=== PATIENT | female | born 1955 | race Caucasian/White ===

== ENCOUNTER 2016-12-13 13:24 | Emergency (ER) | payer SELFPAY ==
--- NOTE | 2016-12-13 13:32 | ER Document Report ---
ED Medical Screen (RME) - General Stated Complaint: ABDOMINAL PAIN/BLOOD IN URINE Time seen by provider: 13:30 Mode of Arrival: Ambulatory Information source: Patient Notes: 61-year-old female presents to ED for flank pain on the right for the last week started out mild became much worse starting yesterday. Patient states she's been having nausea and diarrhea but no vomiting. Patient states she has had kidney stones in the past. And she has blood in her urine at the doctor's office. She states it fink when she urinates and she has frequency and urgency with urination. I have greeted and performed a rapid initial assessment of this patient. A comprehensive ED assessment and evaluation of the patient, analysis of test results and completion of medical decision making process will be conducted by an additional ED providers. TRAVEL OUTSIDE OF THE [place] IN LAST 30 DAYS: No - Related Data Allergies/Adverse Reactions: Egg Derived [Egg/Poultry] Allergy (Severe, Verified 01/13/16 07:54) Anaphylaxis Sulfa (Sulfonamide Antibiotics) Allergy (Severe, Verified 01/13/16 07:54) Hives Past Medical History - Past Medical History Cardiac Medical History: Reports: Hx Hypertension, Hx Heart Murmur Pulmonary Medical History: Denies: Hx Tuberculosis Neurological Medical History: Denies: Hx Seizures Renal/ Medical History: Reports: Hx Kidney Stones GI Medical History: Reports: Hx Gastroesophageal Reflux Disease, Hx Hiatal Hernia Psychiatric Medical History: Reports: Hx Depression Past Surgical History: Reports: Hx Abdominal Surgery - to remove scar tissue, Hx Cardiac Catheterization. Denies: Hx Pacemaker - Immunizations Hx Diphtheria, Pertussis, Tetanus Vaccination: Yes Physical Exam - Vital signs Vitals: Pulse Resp BP Pulse Ox 69 17 142/70 H 99 12/13/16 17:28 12/13/16 17:28 12/13/16 17:28 12/13/16 17:28 Course - Vital Signs Vital signs: Temp Pulse Resp BP Pulse Ox 69 17 142/70 H 99 12/13/16 17:28 12/13/16 17:28 12/13/16 17:28 12/13/16 17:28 - Laboratory Result Diagrams: 12/13/16 13:40 12/13/16 13:40 Laboratory results interpreted by me: 12/13/16 12/13/16 13:40 13:45 BUN 23 H Urine Blood SMALL H Urine Urobilinogen 8.0 H Doctor's Discharge - Discharge Clinical Impression: Abdominal pain Condition: Stable Disposition: HOME, SELF-CARE Additional Instructions: Return to the emergency department if symptoms worsen such as increased abdominal pain, fever, loss of consciousness, etc. follow-up with primary care physician as soon as possible. Prescriptions: Ondansetron [Zofran Odt 4 mg Tablet] 1 - 2 tab PO Q4H PRN #15 tab.rapdis PRN Reason: For Nausea/Vomiting Forms: Return to Work Referrals: [facility] [Provider Group] - Follow up as needed
[2016-12-13] MEDS ORDERED: IBUPROFEN 600 MG TABLET PO ONE (13:34)
[2016-12-13] MEDS ORDERED: OXYCODONE-ACETAMINOPHEN 5-325 MG TABLET PO ONE (13:34)
[2016-12-13] MEDS ORDERED: ONDANSETRON 4 MG TAB.RAPDIS PO ONE (13:34)
[2016-12-13 14:05] LABS: APPEARANCE,URINE CLEAR; BILIRUBIN,URINE NEGATIVE (NEGATIVE); GLUCOSE, URINE NEGATIVE (NEGATIVE); KETONES,URINE NEGATIVE (NEGATIVE)
[2016-12-13 14:06] LABS: LEUKOCYTE ESTERASE,URINE NEGATIVE (NEGATIVE); NITRITE,URINE NEGATIVE (NEGATIVE); PROTEIN,URINE NEGATIVE (NEGATIVE)
[2016-12-13 14:15] LABS: ABSOLUTE EOSINOPHILS # (AUTO) 0.1 10^3/uL (0.0-0.6); ABSOLUTE LYMPHOCYTES (AUTO) 2.8 10^3/uL (0.5-4.7); ABSOLUTE MONOCYTES (AUTO) 0.5 10^3/uL (0.1-1.4); ABSOLUTE NEUT (AUTO) 5.3 10^3/uL (1.7-8.2); BASOPHILS % (AUTO) 0.2 % (0-2); EOSINOPHILS % (AUTO) 0.7 % (0-6); HEMATOCRIT 39.7 % (36.0-47.0); HEMOGLOBIN 12.8 g/dL (12.0-15.5); HGB HCT DIFFERENCE -1.3; MEAN CORPUSCULAR HEMOGLOBIN 29.8 pg (27.0-33.4); MEAN CORPUSCULAR HGB CONC 32.2 g/dL (32.0-36.0); MEAN CORPUSCULAR VOLUME 93 fl (80-97); MONOCYTES % (AUTO) 5.6 % (3-13); RED BLOOD COUNT 4.29 10^6/uL (3.72-5.28); RED CELL DISTRIBUTION WIDTH 13.5 % (11.5-14.0); SEGMENTED NEUTROPHILS % (AUTO) 61.5 % (42-78); WHITE BLOOD COUNT 8.6 10^3/uL (4.0-10.5)
[2016-12-13 14:17] LABS: WBC,URINE 0-1 /HPF
[2016-12-13 14:18] LABS: BACTERIA,URINE TRACE /HPF
[2016-12-13] MEDS ORDERED: NORMAL SALINE 1000 ML 1,000 ML IV ONE (14:21)
--- NOTE | 2016-12-13 14:21 | ER Document Report ---
ED General - General Chief Complaint: Abdominal Pain Stated Complaint: ABDOMINAL PAIN/BLOOD IN URINE Time seen by provider: 14:18 Mode of Arrival: Ambulatory Notes: This is a 61-year-old female that presents today with a one-week history of abdominal pain. She states that one week ago she had right upper quadrant pain 2 out of 10 intermittently. She states that it would alternate between sharp and dull. However 3 days ago the abdominal pain became constant and she also complains of left and right flank pain. It is now 10 out of 10 pain with no radiation. She is also complaining of dysuria denies hematuria. Denies fever chills and vomiting. Admits to nausea. She does have a history of kidney stones 9 years ago on the right side. TRAVEL OUTSIDE OF THE [place] IN LAST 30 DAYS: No - Related Data Allergies/Adverse Reactions: Egg Derived [Egg/Poultry] Allergy (Severe, Verified 01/13/16 07:54) Anaphylaxis Sulfa (Sulfonamide Antibiotics) Allergy (Severe, Verified 01/13/16 07:54) Hives Past Medical History - General Information source: Patient - Social History Smoking Status: Current Every Day Smoker Chew tobacco use (# tins/day): No Frequency of alcohol use: None Drug Abuse: None Family History: Reviewed & Not Pertinent Patient has suicidal ideation: No Patient has homicidal ideation: No - Past Medical History Cardiac Medical History: Reports: Hx Hypertension, Hx Heart Murmur Pulmonary Medical History: Denies: Hx Tuberculosis Neurological Medical History: Denies: Hx Seizures Renal/ Medical History: Reports: Hx Kidney Stones. Denies: Hx Peritoneal Dialysis GI Medical History: Reports: Hx Gastroesophageal Reflux Disease, Hx Hiatal Hernia Psychiatric Medical History: Reports: Hx Depression Past Surgical History: Reports: Hx Abdominal Surgery - to remove scar tissue, Hx Cardiac Catheterization. Denies: Hx Pacemaker - Immunizations Hx Diphtheria, Pertussis, Tetanus Vaccination: Yes Hx Pneumococcal Vaccination: 08/25/11 Review of Systems - Review of Systems Constitutional: denies: Chills, Fever EENT: No symptoms reported Cardiovascular: No symptoms reported Respiratory: No symptoms reported Gastrointestinal: See HPI Genitourinary: Burning, Dysuria Female Genitourinary: No symptoms reported Musculoskeletal: No symptoms reported Skin: No symptoms reported Hematologic/Lymphatic: No symptoms reported Neurological/Psychological: No symptoms reported Physical Exam - Vital signs Vitals: Pulse Resp BP Pulse Ox 69 17 142/70 H 99 12/13/16 17:28 12/13/16 17:28 12/13/16 17:28 12/13/16 17:28 - General General appearance: Appears well In distress: None - HEENT Head: Normocephalic, Atraumatic Eyes: Normal Conjunctiva: Normal - Respiratory Respiratory status: No respiratory distress Breath sounds: Normal. No: Rales, Rhonchi, Stridor, Wheezing - Cardiovascular Rhythm: Regular Heart sounds: Normal auscultation - Abdominal Inspection: Normal Bowel sounds: Normal Tenderness: Tender - Tender to right upper quadrant epigastric and left lower quadrant to moderate palpation., Anand's sign - Back Back: CVA tenderness - Right CVA tenderness - Extremities General upper extremity: Normal inspection, Nontender, Normal strength, Normal temperature General lower extremity: Normal inspection, Nontender, Normal strength, Normal temperature - Neurological Cognition: Normal. No: Confused - Psychological Associated symptoms: Normal affect, Normal mood - Skin Skin Temperature: Warm Skin Moisture: Dry Skin Color: Normal Course - Re-evaluation Re-evalutation: 12/13/16 17:04 Patient refuses rectal nausea medicine and prescription. Radiograph images was shared with the patient. She was given multiple opportunities to ask questions. She was advised to follow-up with primary care physician. - Vital Signs Vital signs: Temp Pulse Resp BP Pulse Ox 69 17 142/70 H 99 12/13/16 17:28 12/13/16 17:28 12/13/16 17:28 12/13/16 17:28 - Laboratory Result Diagrams: 12/13/16 13:40 12/13/16 13:40 Laboratory results interpreted by me: 12/13/16 12/13/16 13:40 13:45 BUN 23 H Urine Blood SMALL H Urine Urobilinogen 8.0 H Discharge - Discharge Clinical Impression: Abdominal pain Qualifiers: Abdominal location: generalized Qualified Code(s): R10.84 - Generalized abdominal pain Condition: Stable Disposition: HOME, SELF-CARE Additional Instructions: Return to the emergency department if symptoms worsen such as increased abdominal pain, fever, loss of consciousness, etc. follow-up with primary care physician as soon as possible. Prescriptions: Ondansetron [Zofran Odt 4 mg Tablet] 1 - 2 tab PO Q4H PRN #15 tab.rapdis PRN Reason: For Nausea/Vomiting Forms: Return to Work Referrals: [facility] [Provider Group] - Follow up as needed
[2016-12-13] MEDS ORDERED: ONDANSETRON HCL INJ/PF 4 MG/2 ML SDV IV ONE (14:22)
[2016-12-13 14:41] LABS: ALANINE AMINOTRANSFERASE 24 U/L (9-52); ALBUMIN 4.6 g/dL (3.5-5.0); ALKALINE PHOSPHATASE 93 U/L (38-126); ANION GAP 11 (5-19); ASPARTATE AMINO TRANSFERASE 23 U/L (14-36); BILIRUBIN,TOTAL 0.7 mg/dL (0.2-1.3); BLOOD UREA NITROGEN 23 mg/dL (7-20); CALCIUM 9.7 mg/dL (8.4-10.2); CARBON DIOXIDE 28 mmol/L (22-30); CHLORIDE 106 mmol/L (98-107); CREATININE RESULT 0.93 mg/dL (0.52-1.25); GLUCOSE 95 mg/dL (75-110); POTASSIUM 4.3 mmol/L (3.6-5.0); SODIUM 144.8 mmol/L (137-145); TOTAL PROTEIN 7.8 g/dL (6.3-8.2)
[2016-12-13] MEDS ORDERED: MORPHINE SULFATE 10 MG/ML INJ IV ONE (16:25)
[2016-12-13] MEDS ORDERED: HYDROCODONE/ACETAMINOPHEN 5-325 MG 6 TAB/DSPK PO PRN (17:05)
[2016-12-13 17:33] VITALS: BP 142/70
== END 2016-12-13 17:30 | disposition home or self-care (01) ==
LOC: ER 13:24
DX: R10.84 Generalized abdominal pain (principal); R10.11 Right upper quadrant pain; R30.0 Dysuria; F17.200 Nicotine dependence, unspecified, uncomplicated; I10 Essential (primary) hypertension; K21.9 Gastro-esophageal reflux disease without esophagitis; Z88.2 Allergy status to sulfonamides; Z91.012 Allergy to eggs; Z87.442 Personal history of urinary calculi
CPT/HCPCS: 99284; 96361; 96374; 96375; 36415; 83690; 85025; 80053; 81001; 74176; J2270; J2405; J7030

== ENCOUNTER 2017-05-13 16:49 | Emergency (ER) | payer SELFPAY ==
[2017-05-13 16:59] VITALS: BP 148/69
== END 2017-05-13 20:00 | disposition left against medical advice (07) ==
LOC: ER 16:49
DX: Z53.9 Procedure and treatment not carried out, unspecified reason (principal); R10.9 Unspecified abdominal pain

== ENCOUNTER 2017-05-30 15:59 | Emergency (ER) | payer SELFPAY ==
[2017-05-30] MEDS ORDERED: PROMETHAZINE HCL 25 MG TABLET PO ONE (16:56)
[2017-05-30] MEDS ORDERED: OXYCODONE-ACETAMINOPHEN 5-325 MG TABLET PO ONE (16:56)
[2017-05-30] MEDS ORDERED: ONDANSETRON 4 MG TAB.RAPDIS PO ONE (16:56)
--- NOTE | 2017-05-30 16:58 | ER Document Report ---
ED Medical Screen (RME) - General Chief Complaint: Flank Pain Stated Complaint: BACK/ABDOMINAL/BILATERAL LEG PAIN Time Seen by Provider: 05/30/17 16:56 Notes: Patient says that she has had discomfort in her lower back as well as her abdomen for the past couple of days, but is worsened to severe pain now. She has been nauseated but not vomiting. She said that it feels like she needs to urinate, but then when she goes it fink. She has not noticed any blood in her urine, however. She also notices swelling of both of her lower legs. She was at work today and they advised her to come to be checked out. 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 Has not had any fever. No history of kidney stones. Patient's only abdominal surgery was for scar tissue. She has mitral valve prolapse. TRAVEL OUTSIDE OF THE [place] IN LAST 30 DAYS: No - Related Data Allergies/Adverse Reactions: Egg Derived [Egg/Poultry] Allergy (Severe, Verified 05/30/17 16:25) Anaphylaxis Sulfa (Sulfonamide Antibiotics) Allergy (Severe, Verified 05/30/17 16:25) Hives Past Medical History - Social History Chew tobacco use (# tins/day): No Frequency of alcohol use: None Drug Abuse: None - Past Medical History Cardiac Medical History: Reports: Hx Hypertension, Hx Heart Murmur Pulmonary Medical History: Denies: Hx Tuberculosis Neurological Medical History: Denies: Hx Seizures Renal/ Medical History: Reports: Hx Kidney Stones. Denies: Hx Peritoneal Dialysis GI Medical History: Reports: Hx Gastroesophageal Reflux Disease, Hx Hiatal Hernia Psychiatric Medical History: Reports: Hx Depression Past Surgical History: Reports: Hx Abdominal Surgery - to remove scar tissue, Hx Cardiac Catheterization. Denies: Hx Pacemaker - Immunizations Hx Diphtheria, Pertussis, Tetanus Vaccination: Yes Physical Exam - Vital signs Vitals: Temp Pulse Resp BP Pulse Ox 98.4 F 69 20 145/71 H 98 05/30/17 16:27 05/30/17 16:27 05/30/17 16:27 05/30/17 16:27 05/30/17 16:27 Course - Vital Signs Vital signs: Temp Pulse Resp BP Pulse Ox 98.4 F 69 16 145/71 H 98 05/30/17 16:27 05/30/17 16:27 05/30/17 16:45 05/30/17 16:27 05/30/17 16:27
[2017-05-30 17:22] LABS: ABSOLUTE EOSINOPHILS # (AUTO) 0.1 10^3/uL (0.0-0.6); ABSOLUTE LYMPHOCYTES (AUTO) 2.4 10^3/uL (0.5-4.7); ABSOLUTE MONOCYTES (AUTO) 0.5 10^3/uL (0.1-1.4); ABSOLUTE NEUT (AUTO) 6.1 10^3/uL (1.7-8.2); BASOPHILS % (AUTO) 0.3 % (0-2); EOSINOPHILS % (AUTO) 0.7 % (0-6); HEMATOCRIT 38.1 % (36.0-47.0); HEMOGLOBIN 12.4 g/dL (12.0-15.5); HGB HCT DIFFERENCE -0.9; LYMPHOCYTES % (AUTO) 26.8 % (13-45); MEAN CORPUSCULAR HEMOGLOBIN 28.6 pg (27.0-33.4); MEAN CORPUSCULAR HGB CONC 32.7 g/dL (32.0-36.0); MEAN CORPUSCULAR VOLUME 88 fl (80-97); MONOCYTES % (AUTO) 5.5 % (3-13); RED BLOOD COUNT 4.35 10^6/uL (3.72-5.28); RED CELL DISTRIBUTION WIDTH 14.5 % (11.5-14.0); SEGMENTED NEUTROPHILS % (AUTO) 66.7 % (42-78); WHITE BLOOD COUNT 9.1 10^3/uL (4.0-10.5)
[2017-05-30 17:41] LABS: APPEARANCE,URINE CLEAR; BILIRUBIN,URINE NEGATIVE (NEGATIVE); GLUCOSE, URINE NEGATIVE (NEGATIVE); KETONES,URINE NEGATIVE (NEGATIVE); LEUKOCYTE ESTERASE,URINE TRACE (NEGATIVE); NITRITE,URINE NEGATIVE (NEGATIVE); PROTEIN,URINE NEGATIVE (NEGATIVE); URINE SPECIFIC GRAVITY 1.013; UROBILINOGEN,URINE NEGATIVE mg/dL (<2.0)
[2017-05-30 17:50] LABS: ALANINE AMINOTRANSFERASE 27 U/L (9-52); ALBUMIN 4.3 g/dL (3.5-5.0); ALKALINE PHOSPHATASE 100 U/L (38-126); ANION GAP 10 (5-19); ASPARTATE AMINO TRANSFERASE 20 U/L (14-36); BILIRUBIN,DIRECT 0.3 mg/dL (0.0-0.4); BILIRUBIN,TOTAL 0.5 mg/dL (0.2-1.3); BLOOD UREA NITROGEN 17 mg/dL (7-20); CALCIUM 9.1 mg/dL (8.4-10.2); CARBON DIOXIDE 26 mmol/L (22-30); CHLORIDE 104 mmol/L (98-107); CREATININE RESULT 0.87 mg/dL (0.52-1.25); GLUCOSE 100 mg/dL (75-110); LIPASE 75.6 U/L (23-300); SODIUM 140.4 mmol/L (137-145); TOTAL PROTEIN 7.7 g/dL (6.3-8.2)
[2017-05-30] MEDS ORDERED: KETOROLAC TROMETHAMINE INJ/PF 30 MG/1 ML SDV IV ONE (19:28)
--- NOTE | 2017-05-30 21:14 | ER Document Report ---
ED GI/ <DANYELLECATRACHITO MaganaDELANEY - Last Filed: 05/31/17 00:48> - General Mode of Arrival: Ambulatory Information source: Patient TRAVEL OUTSIDE OF THE [place] IN LAST 30 DAYS: No - HPI Onset: Other - Refer to HPI notes <ANTONYDORINA - Last Filed: 05/31/17 01:24> - General Chief Complaint: Flank Pain Stated Complaint: BACK/ABDOMINAL/BILATERAL LEG PAIN Time Seen by Provider: 05/30/17 16:56 Notes: Patient is a 61-year old female presenting to the emergency department for low back/flank pain, abdominal distension, and lower extremity edema. Patient states that she first had some mild discomfort in her lower back bilaterally for about 2 weeks; patient had worsened pain specifically to the right flank that was onset today. Patient also has some right sided abdominal pain, burning with urination, and abdominal distension. Patient has had increased distension over the past 2 weeks and has gone from pant size 8 to size 13 due to the distension. Patient complains of some pain in her left leg as well. Patient also complains of nausea but denies vomiting. (DORINA HARDY) - Related Data Allergies/Adverse Reactions: Egg Derived [Egg/Poultry] Allergy (Severe, Verified 05/30/17 16:25) Anaphylaxis Sulfa (Sulfonamide Antibiotics) Allergy (Severe, Verified 05/30/17 16:25) Hives Past Medical History - General Information source: Patient - Social History Smoking Status: Current Some Day Smoker Chew tobacco use (# tins/day): No Frequency of alcohol use: None Drug Abuse: None Family History: None Patient has suicidal ideation: No Patient has homicidal ideation: No - Past Medical History Cardiac Medical History: Reports: Hx Hypertension, Hx Heart Murmur Renal/ Medical History: Reports: Hx Kidney Stones GI Medical History: Reports: Hx Gastroesophageal Reflux Disease, Hx Hiatal Hernia Psychiatric Medical History: Reports: Hx Depression Past Surgical History: Reports: Hx Abdominal Surgery - to remove scar tissue, Hx Cardiac Catheterization - Immunizations Hx Diphtheria, Pertussis, Tetanus Vaccination: Yes Hx Pneumococcal Vaccination: 08/25/11 <DORINA HARDY - Last Filed: 05/31/17 01:24> Review of Systems - Review of Systems Constitutional: No symptoms reported EENT: No symptoms reported Cardiovascular: No symptoms reported Respiratory: No symptoms reported Gastrointestinal: See HPI, Abdomen distended, Abdominal pain, Nausea. denies: Vomiting Genitourinary: See HPI, Burning, Dysuria, Flank pain Female Genitourinary: No symptoms reported Musculoskeletal: See HPI Skin: No symptoms reported Hematologic/Lymphatic: No symptoms reported Neurological/Psychological: No symptoms reported -: Yes All other systems reviewed and negative <DORINA HARDY - Last Filed: 05/31/17 01:24> Physical Exam <DELANEY BASSETT - Last Filed: 05/31/17 00:48> - Vital signs Interpretation: Normal <DORINA HARDY - Last Filed: 05/31/17 01:24> - Vital signs Vitals: Temp Pulse Resp BP Pulse Ox 98.4 F 69 20 145/71 H 98 05/30/17 16:27 05/30/17 16:27 05/30/17 16:27 05/30/17 16:27 05/30/17 16:27 - Notes Notes: GENERAL: Alert, interacts well. No acute distress. HEAD: Normocephalic, atraumatic. EYES: Pupils equal, round, and reactive to light. Extraocular movements intact. ENT: Oral mucosa moist, tongue midline. NECK: Full range of motion. Supple. Trachea midline. LUNGS: Clear to auscultation bilaterally, no wheezes, rales, or rhonchi. No respiratory distress. HEART: Regular rate and rhythm. No murmurs, gallops, or rubs. ABDOMEN: Soft, mild right-lateral abdominal pain. Distended abdomen. Bowel sounds present in all 4 quadrants. EXTREMITIES: Moves all 4 extremities spontaneously. Normal dorsalis pedis pulses bilaterally. Trace pitting edema over the pretibial bilaterally. NEUROLOGICAL: Alert and oriented x3. Normal speech. PSYCH: Normal affect, normal mood. SKIN: Warm, dry, normal turgor. No rashes or lesions noted. (LORETODORINA VELÁZQUEZ) Course - Laboratory Result Diagrams: 05/30/17 17:10 05/30/17 17:10 <DELANEY BASSETT - Last Filed: 05/31/17 00:48> - Laboratory Result Diagrams: 05/30/17 17:10 05/30/17 17:10 <ANTONYDORINA - Last Filed: 05/31/17 01:24> - Re-evaluation Re-evalutation: 05/31/17 00:48 05/31/17 00:46 Old records, it seems the patient is been here several times over the last 6 years with similar complaints of abdominal swelling bloating and pain, each time with a negative workup. (DELANEY BASSETT) - Vital Signs Vital signs: Temp Pulse Resp BP Pulse Ox 97.6 F 61 16 122/62 98 05/30/17 21:19 05/30/17 21:19 05/30/17 21:19 05/30/17 21:19 05/30/17 21:19 - Laboratory Laboratory results interpreted by me: 05/30/17 05/30/17 05/30/17 17:00 17:10 22:02 RDW 14.5 H ESR 31 H Urine Blood MODERATE H Ur Leukocyte Esterase TRACE H Discharge <DELANEY BASSETT - Last Filed: 05/31/17 00:48> <DORINA HRADY - Last Filed: 05/31/17 01:24> - Discharge Clinical Impression: Abdominal pain Qualifiers: Abdominal location: lower abdomen, unspecified Qualified Code(s): R10.30 - Lower abdominal pain, unspecified Low back pain Qualifiers: Chronicity: unspecified Back pain laterality: unspecified Sciatica presence: without sciatica Qualified Code(s): M54.5 - Low back pain Condition: Stable Disposition: HOME, SELF-CARE Additional Instructions: Abdominal Pain: There are many causes of abdominal pain. Pain can mean a serious problem requiring surgery (such as appendicitis). It can also be an innocent problem that goes away on its own (such as a viral infection). Often, time must pass to determine the cause of pain. The physician does not feel that hospitalization is necessary, at present. Things may change within the next 24 hours. Call the doctor or come back for re- examination if any problems occur, such as: (1) Pain that becomes more severe, steady, or becomes concentrated in one specific area. Also, pain that is more severe with movement or coughing. (2) Vomiting that persists or becomes more frequent. (3) Blood in the vomitus, urine, or bowel movements. Blood in the stool may have a tarry or black appearance. (4) Shaking chills or fever greater than 100 degrees F. (5) The abdomen becomes more distended or swollen. (6) Bowel movements cease. (7) Failure to improve as expected. Try taking MiraLAX daily to keep your bowels moving. Drink plenty of fluids. Follow-up with a local medical doctor if not improving. RETURN TO THE EMERGENCY ROOM IF ANY NEW OR WORSENING SYMPTOMS. Forms: Return to Work Scribe Attestation: 05/31/17 00:51 I personally performed the services described in the documentation, reviewed and edited the documentation which was dictated to the scribe in my presence, and it accurately records my words and actions. (DELANEY BASSETT) Scribe Documentation - Scribe Written by Missy:: Missy Steele, 05/30/2017 21:09 acting as scribe for :: Danyelle <DORINA HARDY - Last Filed: 05/31/17 01:24>
--- NOTE | 2017-05-31 00:35 | RADIOLOGY REPORT (SQ) ---
EXAM DESCRIPTION: CT ABD/PELVIS WITH IV ORAL COMPLETED DATE/TIME: 05/31/2017 12:17 am REASON FOR STUDY: abd pain, swelling, pant size 8 to 13 in 2 wks COMPARISON: 12/13/2016 TECHNIQUE: CT scan of the abdomen and pelvis performed using helical scanning technique with dynamic intravenous contrast injection. No oral contrast. Images reviewed with lung, soft tissue, and bone windows. Reconstructed coronal and sagittal MPR images reviewed. Delayed images for evaluation of the urinary system also acquired. All images stored on PACS. All CT scanners at this facility use dose modulation, iterative reconstruction, and/or weight based d osing when appropriate to reduce radiation dose to as low as reasonably achievable (ALARA). [facility]: Dose Right [facility]: CareDose [facility]: Dose Right [facility]: Teradose 4D [facility]: [employer] CONTRAST TYPE AND DOSE: contrast/concentration: Isovue 370.00 mg/ml; Total Contrast Delivered: 72.0 ml; Total Saline Delivered: 66.0 ml RENAL FUNCTION: 0.9 RADIATION DOSE: Up-to-date CT equipment and radiation dose reduction techniques were employed. CTDIv ol: 11.6 mGy. DLP: 1188 mGy-cm.. LIMITATIONS: None. FINDINGS: LOWER CHEST: Small atelectasis or scar bilateral lung bases. 5 cm hiatal hernia. LIVER: Normal size. No masses. No dilated ducts. SPLEEN: Normal size. No focal lesions. PANCREAS: No masses. No significant calcifications. No adjacent inflammation or peripancreatic fluid collections. Pancreatic duct not dilated. GALLBLADDER: No identified stones by CT criteria. No inflammatory changes to suggest cholecystitis. ADRENAL GLANDS: No significant masses or asymmetry. RIGHT KIDNEY AND URETER: No solid masses. No significant calcifications. No hydronephrosis or hyd roureter. LEFT KIDNEY AND URETER: No solid masses. No significant calcifications. No hydronephrosis or hydr oureter. AORTA AND VESSELS: No aneurysm. No dissection. Renal arteries, SMA, celiac without stenosis. RETROPERITONEUM: No retroperitoneal adenopathy, hemorrhage or masses. BOWEL AND PERITONEAL CAVITY: No masses or inflammatory changes. No free fluid or peritoneal masses. APPENDIX: Normal. PELVIS: No mass or free fluid. Normal bladder. ABDOMINAL WALL: No masses. No hernias. BONES: Chronic grade 1 L5 anterolisthesis. Moderate lumbosacral spondylosis. OTHER: No other significant finding. IMPRESSION: No acute findings. Small-moderate chronic hiatal hernia. TECHNICAL DOCUMENTATION: JOB ID: [id number] Quality ID # [id number]: Final reports with documentation of one or more dose reduction techniques (e.g., Au tomated exposure control, adjustment of the mA and/or kV according to patient size, use of iterative reconstruction technique) 2010 [employer]- All Rights Reserved
[2017-05-31] MEDS ORDERED: HYDROCODONE/ACETAMINOPHEN 5-325 MG 6 TAB/DSPK PO PRN (00:45)
[2017-05-31 01:28] VITALS: BP 133/74
== END 2017-05-31 01:27 | disposition home or self-care (01) ==
LOC: ER 15:59
DX: R10.30 Lower abdominal pain, unspecified (principal); M54.5 Low back pain; M54.9 Dorsalgia, unspecified; M79.604 Pain in right leg; M79.605 Pain in left leg; R60.0 Localized edema; R30.9 Painful micturition, unspecified; R14.0 Abdominal distension (gaseous); F17.200 Nicotine dependence, unspecified, uncomplicated
CPT/HCPCS: 99284; 96374; 36415; 83690; 85025; 85652; 80053; 81001; 85379; 74177; S0119; J1885

== ENCOUNTER → 2017-12-28 | Outpatient (CLI) | payer OTHER ==
--- NOTE | 2017-12-28 14:52 | RADIOLOGY REPORT (SQ) ---
EXAM DESCRIPTION: MRI HEAD WITHOUT COMPLETED DATE/TIME: 12/28/2017 12:37 pm REASON FOR STUDY: MIGRAINE G43.909 MIGRAINE, UNSP, NOT INTRACTABLE, WITHOUT STATUS MIGR COMPARISON: Multiple, most recent 01/13/2016 TECHNIQUE: Multiplanar imaging includes non-contrasted T1, T2, FLAIR, and diffusion with ADC map seq uences. Images stored on PACS. LIMITATIONS: None. FINDINGS: ANATOMY: No anomalies. Normal vascular flow voids. Pituitary fossa normal. CSF SPACES: Normal in size and contour. No hemorrhage. CEREBRUM: Sulci and gyri normal in size and contour. Normal white matter signal on FLAIR imaging. No evidence of hemorrhage, mass, or extraaxial fluid collection. POSTERIOR FOSSA: No signal alteration. No hemorrhage. No edema, masses or mass effect. Internal daniele tory canals, cerebello-pontine angles, mastoids normal. DIFFUSION IMAGING: Negative for acute or sub-acute infarction. ORBITS: No masses. Globes normal. PARANASAL SINUSES: No fluid levels. Mucosa normal. OTHER: No other significant finding. IMPRESSION: Normal brain. EVIDENCE OF ACUTE STROKE: NO. TECHNICAL DOCUMENTATION: JOB ID: [id number] [email or web address]- All Rights Reserved
== END ==
LOC: RAD 11:55
PROVIDERS: ATTEND Physician Assistant Medical
DX: G43.909 Migraine, unspecified, not intractable, without status migrainosus (principal)
CPT/HCPCS: 70551

== ENCOUNTER → 2018-09-04 | Outpatient (CLI) | payer OTHER | LOC: OD 11:02 | PROVIDERS: ATTEND Family Medicine | DX: R68.89 Other general symptoms and signs (principal) | CPT/HCPCS: 36415; 84443 ==

== ENCOUNTER 2018-09-05 10:45 | Emergency (ER) | payer OTHER ==
[2018-09-05] MEDS ORDERED: DIPH/PERTUSS(ACELL)/TETANUS VAC/PF 0.5 ML SYR (>=10YO) IM ONE (12:10)
--- NOTE | 2018-09-05 12:25 | ER Document Report ---
ED Eye Complaint - General Chief Complaint: Eye Problem Stated Complaint: FOREIGN BODY Time Seen by Provider: 09/05/18 12:10 Information source: Patient Notes: 63-year-old female who presents today with a possible injury to her right eye. Patient was seeing Dr. Goode at the primary care physician's office when she was having a right nasal biopsy and supposedly silver nitrate possibly got into the medial corner of the right eye. Patient was wearing contact lenses and the contact lenses were immediately removed and supposedly the eye was flushed with normal saline. Patient was sent here for further evaluation and treatment. Patient's tetanus is not up-to-date. She states some itching and burning to her right eye kind of like "lemon juice". She states some very minimal blurry vision. Patient wears contacts at baseline. TRAVEL OUTSIDE OF THE [place] IN LAST 30 DAYS: No - HPI Onset: Other - See above Occurred at: Other - See above Quality of pain: Burning Severity: Moderate Pain Level: 1 Exposure: Other Contact lenses worn: Yes Contact lenses: Soft Associated symptoms: Other - See above - Related Data Allergies/Adverse Reactions: Egg Derived [Egg/Poultry] Allergy (Severe, Verified 09/05/18 10:47) Anaphylaxis Sulfa (Sulfonamide Antibiotics) Allergy (Severe, Verified 09/05/18 10:47) Hives Past Medical History - Social History Smoking Status: Unknown if Ever Smoked Family History: None Patient has suicidal ideation: No Patient has homicidal ideation: No - Past Medical History Cardiac Medical History: Reports: Hx Hypertension, Hx Heart Murmur Pulmonary Medical History: Denies: Hx Tuberculosis Neurological Medical History: Denies: Hx Seizures Renal/ Medical History: Reports: Hx Kidney Stones. Denies: Hx Peritoneal Dialysis GI Medical History: Reports: Hx Gastroesophageal Reflux Disease, Hx Hiatal Hernia Psychiatric Medical History: Reports: Hx Depression Past Surgical History: Reports: Hx Abdominal Surgery - to remove scar tissue, Hx Cardiac Catheterization. Denies: Hx Pacemaker - Immunizations Hx Diphtheria, Pertussis, Tetanus Vaccination: Yes Hx Pneumococcal Vaccination: 08/25/11 Physical Exam - Vital signs Vitals: Temp Pulse Resp BP Pulse Ox 97.9 F 72 16 145/70 H 98 09/05/18 10:55 09/05/18 10:55 09/05/18 10:55 09/05/18 10:55 09/05/18 10:55 Notes: Reviewed vital signs and nursing note as charted by RN. CONSTITUTIONAL: Alert and oriented and responds appropriately to questions. Well -appearing; well-nourished HEAD: Normocephalic; atraumatic EYES: PERRL; full extra occular range of motion; medial conjunctive are slightly injected. No periorbital swelling or erythema. NEURO: CN 2-12 intact. Moves all extremities equally; Motor and sensory function intact Course - Re-evaluation Re-evalutation: 09/05/18 12:23 I called and spoke directly to Dr. Goode. Said flushed extensively. Said silver nitrite with bacitracin. Lido with epi initially to numb area in the beginning. I performed an eye examination including everting the upper eyelid, with no obvious fluorescein uptake on Chandler lens. I do not see any foreign bodies. Given the above history and physical examination, we will place a Chandler lens on the patient and flushed extensively. I have attempted to call the ball maker, Dr. Leavitt's office and they are currently at lunch. I have updated the pt's tetanus. 09/05/18 13:26 I spoke directly to the ball maker Dr. Gricelda Leavitt who states that she will be able to see the patient in the office this afternoon after discharge. She does not recommend any further treatment at this time. No change in eye examination the patient states that she does feel better after this irrigation. - Vital Signs Vital signs: Temp Pulse Resp BP Pulse Ox 97.9 F 72 16 145/70 H 98 09/05/18 10:55 09/05/18 10:55 09/05/18 10:55 09/05/18 10:55 09/05/18 10:55 Discharge - Discharge Clinical Impression: Right eye injury Qualifiers: Encounter type: initial encounter Qualified Code(s): S05.91XA - Unspecified injury of right eye and orbit, initial encounter Condition: Good Disposition: HOME, SELF-CARE Additional Instructions: Please go directly to the ball maker office, Dr. Gricelda Leavitt for further evaluation and assessment. Referrals: MYLA GOODE MD [Primary Care Provider] - Follow up as needed GRICELDA LEAVITT MD [ACTIVE STAFF] - Follow up as needed
[2018-09-05 13:41] VITALS: BP 117/60
== END 2018-09-05 13:50 | disposition home or self-care (01) ==
LOC: ER 10:45
DX: S05.91XA Unspecified injury of right eye and orbit, initial encounter (principal); X58.XXXA Exposure to other specified factors, initial encounter; I10 Essential (primary) hypertension; Z23 Encounter for immunization; Z98.890 Other specified postprocedural states; Z91.012 Allergy to eggs; Z88.2 Allergy status to sulfonamides
CPT/HCPCS: 90471; 90715; 99283

== ENCOUNTER → 2018-09-08 | Outpatient (CLI) | payer OTHER ==
[2018-09-08 14:24] LABS: THYROXINE T4 7.99 ug/dL (5.53-11.0)
[2018-09-08 14:37] LABS: TOTAL T3 1.17 ng/mL (0.970-1.69)
== END ==
LOC: OD 12:22
PROVIDERS: ATTEND Family Medicine
DX: R79.89 Other specified abnormal findings of blood chemistry (principal)
CPT/HCPCS: 36415; 84436; 84443; 84480

== ENCOUNTER → 2018-09-10 | Outpatient (CLI) | payer OTHER ==
--- NOTE | 2018-09-10 17:55 | RADIOLOGY REPORT (SQ) ---
EXAM DESCRIPTION: U/S THYROID/SFT TISS HD NECK COMPLETED DATE/TIME: 09/10/2018 5:09 pm REASON FOR STUDY: NONTOXIC GOITER, UNSPECIFIED E04.9 NONTOXIC GOITER, UNSPECIFIED COMPARISON: None. TECHNIQUE: Dynamic and static nguyen-scale images acquired of the thyroid gland. Selected additional c olor/power Doppler images recorded. All images stored to PACS. LIMITATIONS: None. FINDINGS: RIGHT LOBE: Slightly prominent size, 5.4 cm. Homogeneous echotexture. No cystic or solid masses. LEFT LOBE: Normal size, 4.2 cm. Homogeneous echotexture. No cystic or solid masses. ISTHMUS: Normal size, 3 mm. Homogeneous echotexture. No cystic or solid masses. OTHER: No other significant finding. IMPRESSION: The right lobe is slightly enlarged. The gland is otherwise unremarkable. TECHNICAL DOCUMENTATION: JOB ID: [id number] [employer]- All Rights Reserved Reading location - IP/workstation name: [email or web address]
== END ==
LOC: RAD 16:01
PROVIDERS: ATTEND Family Medicine
DX: E04.9 Nontoxic goiter, unspecified (principal); R79.89 Other specified abnormal findings of blood chemistry
CPT/HCPCS: 76536

== ENCOUNTER → 2018-09-16 | Outpatient (CLI) | payer OTHER ==
[2018-09-16 14:31] LABS: BLOOD UREA NITROGEN 20 mg/dL (7-20); CALCIUM 9.7 mg/dL (8.4-10.2); GLUCOSE 104 mg/dL (75-110)
[2018-09-16 14:32] LABS: ALANINE AMINOTRANSFERASE 19 U/L (9-52); ALBUMIN 4.4 g/dL (3.5-5.0); ALKALINE PHOSPHATASE 74 U/L (38-126); AMYLASE 44 U/L (30-110); ANION GAP 9 (5-19); ASPARTATE AMINO TRANSFERASE 21 U/L (14-36); BILIRUBIN,DIRECT 0.3 mg/dL (0.0-0.4); BILIRUBIN,TOTAL 0.5 mg/dL (0.2-1.3); CARBON DIOXIDE 26 mmol/L (22-30); CHLORIDE 106 mmol/L (98-107); LIPASE 57.6 U/L (23-300); POTASSIUM 4.3 mmol/L (3.6-5.0); TOTAL PROTEIN 7.5 g/dL (6.3-8.2)
== END ==
LOC: OD 08:00
PROVIDERS: ATTEND Family Medicine
DX: R10.13 Epigastric pain (principal); R68.89 Other general symptoms and signs
CPT/HCPCS: 36415; 80053; 82150; 83690

== ENCOUNTER → 2018-09-23 | Outpatient (CLI) | payer OTHER ==
--- NOTE | 2018-09-23 10:39 | RADIOLOGY REPORT (SQ) ---
EXAM DESCRIPTION: U/S ABDOMEN LIMITED W/O DOP COMPLETED DATE/TIME: 09/23/2018 9:29 am REASON FOR STUDY: RUQ PAIN R10.11 RIGHT UPPER QUADRANT PAIN COMPARISON: None. TECHNIQUE: Dynamic and static grayscale images acquired of the abdomen and recorded on PACS. Katho amy selected color Doppler and spectral images recorded. LIMITATIONS: Limited images due to overlying bowel gas. FINDINGS: PANCREAS: Poorly visualized. No abnormal findings in the pancreatic head. LIVER: No masses. Echotexture normal. LIVER VASCULATURE: Normal directional flow of the main portal vein and hepatic veins. GALLBLADDER: Stones and sludge in the gallbladder. No pericholecystic fluid. No wall thickening. ULTRASOUND-DETECTED PAIGE'S SIGN: Positive. INTRAHEPATIC DUCTS AND COMMON DUCT: CBD and intrahepatic ducts normal caliber. No filling defects. INFERIOR VENA CAVA: Normal flow. AORTA: No aneurysm. RIGHT KIDNEY: Normal size. Normal echogenicity. No solid or suspicious masses. No hydronephrosis. No calcifications. PERITONEAL AND RIGHT PLEURAL SPACE: No ascites or effusions. OTHER: No other significant findings. IMPRESSION: STONES AND SLUDGE IN THE GALLBLADDER. REPORTED POSITIVE SONOGRAPHIC PAIGE SIGN. NO OT HER SIGNIFICANT FINDINGS IN THE VISUALIZED ABDOMEN. TECHNICAL DOCUMENTATION: JOB ID: [id number] [employer]- All Rights Reserved Reading location - IP/workstation name: [email or web address]
== END ==
LOC: RAD 08:07
PROVIDERS: ATTEND Family Medicine
DX: R10.11 Right upper quadrant pain (principal)
CPT/HCPCS: 76705